=== PATIENT | male | born 1995 | race African-American/Black ===

== ENCOUNTER 2019-05-26 15:46 | Emergency (ER) | payer BC ==
--- NOTE | 2019-05-26 16:07 | PDOC ---
Rapid Medical Evaluation Chief Complaint: Shortness of Breath Time Seen by Provider: 05/26/19 16:03 Medical Evaluation: Allergies Allergy/AdvReac Type Severity Reaction Status Date / Time chocolate flavor Allergy Verified 05/27/14 16:15 peanut Allergy Verified 05/27/14 16:15 shellfish derived Allergy Verified 05/27/14 16:15 strawberry Allergy Verified 05/27/14 16:15 05/26/19 16:05 I have performed a brief in-person evaluation of this patient. The patient presents with a chief complaint of: no medical problem report sudden SOB and palpitations after smoking marijuana 30mins ago and came to ED. Report symptoms has improved now Pertinent physical exam findings: heart RRR. lungs CTAB in NAD I have ordered the following: ekg The patient will proceed to the ED for further evaluation. Discharge Disposition - Diagnosis SOB (shortness of breath) - Discharge Dispostion Condition at time of disposition: Improved - Referrals - Patient Instructions - Post Discharge Activity
[2019-05-26 16:12] VITALS: BP 121/69; PULSE 88; TEMP 97.8; BMI 18.6
--- NOTE | 2019-05-26 16:59 | PDOC ---
History of Present Illness - General Chief Complaint: Shortness of Breath Stated Complaint: CHEST PAIN Time Seen by Provider: 05/26/19 16:03 History Source: Patient Exam Limitations: No Limitations - History of Present Illness Initial Comments: 05/26/19 16:57 23-year-old male history of "leaky "valve reports left-sided chest pain immediately after smoking marijuana approximately 1 hour ago, lasting 20 seconds. This is the third incident in the past 3 weeks of left-sided chest pain with intermittent shortness of breath. Smokes marijuana 3-4 times daily. Denies shortness of breath today, back pain, recent illness, cough, arm pain, jaw pain, use of other illicit substances or alcohol. Does not smoke tobacco. Reports normal echocardiogram 5 months ago. ROS: GENERAL/CONSTITUTIONAL: No fever, chills, weakness, dizziness HEAD, EYES, EARS, NOSE AND THROAT: No changes in vision, No ear pain or discharge, No sore throat CARDIOVASCULAR: Chest pain RESPIRATORY: No shortness of breath or cough GASTROINTESTINAL: No pain, nausea, vomiting, diarrhea or constipation GENITOURINARY: No dysuria MUSCULOSKELETAL: No neck or back pain SKIN: No rash NEUROLOGIC: No headache, vertigo, loss of consciousness, or loss of sensation PE: GENERAL: well-appearing, NAD, tall and thin male HEAD: NCAT EYES: Pupils equal, round and reactive to light, sclera anicteric, conjunctiva clear ENT: pharynx: no erythema, no exudate, uvula midline NECK: supple CHEST: nontender RESP: clear, no w/r/r CARDIO: rrr, no m/g/r ABD: +BS, soft, nontender, non distended BACK: no midline spinal ttp, no CVAT EXTREMITIES: Normal range of motion, no edema NEUROLOGICAL: Normal speech, normal gait SKIN: Warm, Dry 05/26/19 18:42 Is this a multiple visit Asthma Patient?: No Past History - Past Medical History Allergies/Adverse Reactions: Allergies Allergy/AdvReac Type Severity Reaction Status Date / Time chocolate flavor Allergy Verified 05/27/14 16:15 peanut Allergy Verified 05/27/14 16:15 shellfish derived Allergy Verified 05/27/14 16:15 strawberry Allergy Verified 05/27/14 16:15 Home Medications: Ambulatory Orders Cephalexin [Keflex] 500 mg PO BID #14 capsule 05/27/14 COPD: No - Immunization History Immunization Up to Date: Yes - Psycho Social/Smoking Cessation Hx Smoking History: Never smoked Information on smoking cessation initiated: No Hx Alcohol Use: No Drug/Substance Use Hx: No Substance Use Type: None *Physical Exam - Vital Signs Last Vital Signs Temp Pulse Resp BP Pulse Ox 97.8 F 88 16 121/69 97 05/26/19 16:04 05/26/19 16:04 05/26/19 16:04 05/26/19 16:04 05/26/19 16:04 ED Treatment Course - LABORATORY CBC & Chemistry Diagram: 05/26/19 17:29 05/26/19 17:29 Medical Decision Making - Medical Decision Making 05/26/19 17:31 23-year-old male with history of leaky valve complains of left-sided chest pain lasting 20 seconds approximately 1 hour ago after smoking marijuana. Smokes marijuana 3-4 times per day, this is the third incident of chest pain in the past 3 weeks. 05/26/19 18:43 ECG completed at 15:57 - nsr, hr 79, st elevation v4, II, III labs, trop x 2 cxr re assess 05/26/19 19:27 First troponin negative Second troponin ordered 05/26/19 20:00 awaiting second trop no cp signed out to NICOLLE Khan 05/26/19 20:03 Discharge - Discharge Information Problems reviewed: Yes Clinical Impression/Diagnosis: SOB (shortness of breath) Condition: Stable - Admission No - Follow up/Referral - Patient Discharge Instructions Additional Instructions: Abstain from illicit substance abuse - Post Discharge Activity
[2019-05-26 18:44] LABS: BASO % 0.4 % (0-2.0); EOS % 2.5 % (0-4.5); HEMATOCRIT 47.6 % (35.4-49); HEMOGLOBIN 15.9 GM/dL (11.7-16.9); LYMPH % 53.1 % (8-40); MCH 28.1 pg (25.7-33.7); MCHC 33.4 g/dl (32.0-35.9); MEAN CELL VOLUME 84.3 fl (80-96); MEAN PLT VOLUME 9.5 fl (7.5-11.1); MONO % 6.7 % (3.8-10.2); NEUT % 37.3 % (42.8-82.8); PLATELET COUNT 231 K/MM3 (134-434); RBC 5.64 M/mm3 (4.00-5.60); RDW 13.5 % (11.9-15.9); WHITE BLOOD COUNT 5.3 K/mm3 (4.0-10.0)
[2019-05-26 19:24] LABS: ALBUMIN 4.4 g/dl (3.4-5.0); ALK PHOS 86 U/L (45-117); ANION GAP 7 MMOL/L (8-16); BILIRUBIN,TOTAL 0.3 mg/dL (0.2-1); BLOOD UREA NITROGEN 17.6 mg/dL (7-18); CALCIUM 9.2 mg/dL (8.5-10.1); CHLORIDE 105 mmol/L (98-107); CO2 25 mmol/L (21-32); CREATININE 1.1 mg/dL (0.55-1.3); GLUCOSE,RANDOM 74 mg/dL (74-106); SGOT/AST 10 U/L (15-37); SGPT/ALT 21 U/L (13-61); SODIUM 137 mmol/L (136-145); TOT PROT 7.6 g/dl (6.4-8.2)
--- NOTE | 2019-05-26 20:56 | PDOC ---
*Physical Exam - Vital Signs Last Vital Signs Temp Pulse Resp BP Pulse Ox 97.8 F 88 16 121/69 97 05/26/19 16:04 05/26/19 16:04 05/26/19 16:04 05/26/19 16:04 05/26/19 16:04 - Physical Exam 05/26/19 20:54 Patient reevaluated no chest pain at this time EKG was repeated without change second troponin is negative this case was discussed with our emergency room attending at this time we have come to the conclusion that is safe to discharge this patient home with cardiology follow-up. Patient is aware to come back if chest pain should continue or recur. ED Treatment Course - LABORATORY CBC & Chemistry Diagram: 05/26/19 17:29 05/26/19 17:29 - ADDITIONAL ORDERS Additional order review: Laboratory Results 05/26/19 05/26/19 19:40 17:29 Sodium 137 Potassium 4.0 Chloride 105 Carbon Dioxide 25 Anion Gap 7 L BUN 17.6 Creatinine 1.1 Est GFR (CKD-EPI)AfAm 108.32 Est GFR (CKD-EPI)NonAf 93.46 Random Glucose 74 Calcium 9.2 Total Bilirubin 0.3 AST 10 L ALT 21 Alkaline Phosphatase 86 Troponin I < 0.02 < 0.02 Total Protein 7.6 Albumin 4.4 05/26/19 17:29 RBC 5.64 H MCV 84.3 MCHC 33.4 RDW 13.5 MPV 9.5 Neutrophils % 37.3 L Lymphocytes % 53.1 H Monocytes % 6.7 Eosinophils % 2.5 Basophils % 0.4 Discharge - Discharge Information Problems reviewed: Yes Clinical Impression/Diagnosis: SOB (shortness of breath) Condition: Stable Disposition: HOME - Admission No - Follow up/Referral Referrals: Radha Pisano MD [Staff Physician] - Darren Rodríguez MD [Staff Physician] - Deedee Guerra MD [Staff Physician] - Miguel Lin MD [Non Staff, Medical] - Vipin Calvo MD [Staff Physician] - Juan Luis MD [Staff Physician] - Jamil Silva MD [Staff Physician] - Tyrell Simpson MD [Non Staff, Medical] - Abdullahi Mayberry MD [Staff Physician] - Geneva Stiles NP [Non Staff, Medical] - - Patient Discharge Instructions Additional Instructions: Without fail follow-up with cardiology in 1 to 2 days and return to the emergency room should symptoms recur. Abstain from illicit substance abuse - Post Discharge Activity
--- NOTE | 2019-05-27 11:01 | EKG ---
Test Reason : Blood Pressure : / mmHG Vent. Rate : 066 BPM Atrial Rate : 066 BPM P-R Int : 132 ms QRS Dur : 090 ms QT Int : 396 ms P-R-T Axes : 058 085 066 degrees QTc Int : 415 ms NORMAL SINUS RHYTHM POSSIBLE LEFT ATRIAL ENLARGEMENT ST ELEVATION, CONSIDER EARLY REPOLARIZATION, PERICARDITIS, OR INJURY ABNORMAL ECG WHEN COMPARED WITH ECG OF 26-MAY-2019 15:57, NO SIGNIFICANT CHANGE WAS FOUND Confirmed by Darren Rodríguez MD ([id number]) on 05/27/2019 11:00:37 AM Referred By: Confirmed By:Darren Rodríguez MD
--- NOTE | 2019-05-27 11:01 | EKG ---
Test Reason : Blood Pressure : / mmHG Vent. Rate : 079 BPM Atrial Rate : 079 BPM P-R Int : 134 ms QRS Dur : 092 ms QT Int : 380 ms P-R-T Axes : 064 086 065 degrees QTc Int : 435 ms NORMAL SINUS RHYTHM POSSIBLE LEFT ATRIAL ENLARGEMENT ST ELEVATION, CONSIDER EARLY REPOLARIZATION, PERICARDITIS, OR INJURY ABNORMAL ECG NO PREVIOUS ECGS AVAILABLE Confirmed by Darren Rodríguez MD ([id number]) on 05/27/2019 11:01:02 AM Referred By: Confirmed By:Darren Rodríguez MD
== END 2019-05-26 20:57 | disposition home or self-care (01) ==
LOC: JERFT 15:46
DX: R06.02 Shortness of breath (principal); F12.90 Cannabis use, unspecified, uncomplicated; I38 Endocarditis, valve unspecified; Z91.010 Allergy to peanuts; Z91.013 Allergy to seafood; Z91.018 Allergy to other foods
CPT/HCPCS: 36415; 71046-TC-FY; 80053; 84484; 85025; 93005; 93010; 99283-25